=== PATIENT | male | born 1955 | race Asian ===

== ENCOUNTER 2018-12-18 08:50 | Outpatient (CLI) | payer BC, MEDICARE | END 2018-12-18 12:06 | disposition home or self-care (01) | LOC: COL.CAR 08:50 | DX: R55 Syncope and collapse (principal); I25.10 Atherosclerotic heart disease of native coronary artery without angina pectoris; I10 Essential (primary) hypertension; E78.5 Hyperlipidemia, unspecified; I48.0 Paroxysmal atrial fibrillation; G47.33 Obstructive sleep apnea (adult) (pediatric); I25.2 Old myocardial infarction; R53.83 Other fatigue; Z79.82 Long term (current) use of aspirin; Z79.4 Long term (current) use of insulin; Z95.1 Presence of aortocoronary bypass graft ==